=== PATIENT | male | born 1935 | race Caucasian/White ===

== ENCOUNTER 2016-12-29 09:13 | Inpatient (IN) | payer MEDICARE ==
[~2016-12-29] VITALS: Ht 180.3 cm; Wt 71.7 kg
[~2016-12-29 09:13] MED LIST: ACIPHEX20 MG PO; ASPIRIN LOW DOS81 M2 PO; BENAZEPRIL10 MG PO; FISH OIL1000 MG PO; FORADIL PO; METOPROL TAR25 MG PO; PREDNISONE20 MG PO; PROVENTIL0.083 % IN; SIMVASTATIN10 MG PO
[2016-12-29] MEDS ORDERED: ZOCOR20 M1 PO (09:22)
[2016-12-29] MEDS ORDERED: BENAZEPRIL10 MG PO (09:22)
[2016-12-29] MEDS ORDERED: METO25TAB PO (09:23)
[2016-12-29] MEDS ORDERED: LEVALBUTER1.25 MG/3 IN (09:26)
[2016-12-29] MEDS ORDERED: VENTOLIN HFA IN (09:28)
[2016-12-29] MEDS ORDERED: VITAMIN B-12500 MCG PO (09:29)
[2016-12-29] MEDS ORDERED: FISH OIL1000 MG PO (09:30)
[2016-12-29] MEDS ORDERED: ROBITUSS22 PO (09:31)
[2016-12-29] MEDS ORDERED: GUAIFENESI PO (09:32)
[2016-12-29] MEDS ORDERED: BL IBUPROFEN200 MG PO (09:33)
[2016-12-29] MEDS ORDERED: SEREVENT D50 MCG/DOS IN (09:34)
[2016-12-29 09:57] LABS: HEMATOCRIT 24.5 % (39.0-50.0); HEMOGLOBIN 7.2 g/dl (14.0-18.0); MEAN CELL VOLUME 108.9 fL CALC (80.0-100.0); MEAN CORPUSCULAR HGB CONC 29.4 g/L CALC (32.0-36.0); NEUT# 3.54 thou/uL (1.82-7.42); RED BLOOD COUNT 2.25 mill/uL (4.70-6.10); RED CELL DISTRI WIDTH 16.7 % (11.5-15.5)
[2016-12-29 09:59] LABS: IMMATURE GRANULOCYTES 11.7 % (0.0-1.0)
[2016-12-29 10:12] LABS: ALBUMIN 3.9 g/dL (3.2-5.0); ALKALINE PHOSPHATASE 88 u/l (38-126); ANION GAP 15 (6-22 (CALC)); BILIRUBIN, TOTAL 0.6 mg/dL (0.0-1.4); BUN 30 mg/dL (8-23); BUN/CREATININE RATIO 24 (12-20 (CALC)); CARBON DIOXIDE 26 mmol/l (22-30); CHLORIDE 105 mmol/l (95-108); CREATININE 1.3 mg/dL (0.7-1.3); GFR 53 ML/MIN (>=60 (CALC)); GFR FOR AFR.AMER. > 60 ML/MIN (>=60 (CALC)); GLUCOSE 124 mg/dL (82-115); POTASSIUM 4.4 mmol/l (3.5-5.1); SGOT/AST 30 u/l (19-48); SGPT/ALT 19 u/l (11-66); SODIUM 141 mmol/l (137-146); TOTAL PROTEIN 8.5 g/dL (6.3-8.2)
[2016-12-29 10:28] LABS: MYOGLOBIN 779 ng/mL (0 - 121)
[2016-12-29 10:35] VITALS: BP 116/69
[2016-12-29 12:00] VITALS: BP 130/58
[2016-12-29 12:45] VITALS: BP 129/60
[2016-12-29 13:04] VITALS: BP 118/56
[2016-12-29 14:26] VITALS: BP 128/65
[2016-12-29 19:35] VITALS: BP 141/63
[2016-12-30] VITALS (10 sets, daily range): BP systolic 100–146; BP diastolic 52–69
[2016-12-30 05:55] LABS: HEMATOCRIT 26.4 % (39.0-50.0); HEMOGLOBIN 8.1 g/dl (14.0-18.0); MEAN CELL VOLUME 103.9 fL CALC (80.0-100.0); MEAN CORPUSCULAR HGB 31.9 pG CALC (26.0-32.0); MEAN CORPUSCULAR HGB CONC 30.7 g/L CALC (32.0-36.0); PLATELET COUNT 142 thou/uL (130-400); RED BLOOD COUNT 2.54 mill/uL (4.70-6.10); RED CELL DISTRI WIDTH 18.4 % (11.5-15.5)
[2016-12-30 06:07] LABS: ANION GAP 14 (6-22 (CALC)); BUN 21 mg/dL (8-23); BUN/CREATININE RATIO 21 (12-20 (CALC)); CALCULATED LDLCHOLESTEROL 35 mg/dL (62-129 (CALC)); CARBON DIOXIDE 24 mmol/l (22-30); CHLORIDE 106 mmol/l (95-108); CHOLESTEROL HDL RATIO 3.2 (<4.4 (CALC)); GFR > 60 ML/MIN (>=60 (CALC)); GFR FOR AFR.AMER. > 60 ML/MIN (>=60 (CALC)); GLUCOSE 95 mg/dL (82-115); HDL CHOLESTEROL 25 mg/dL (>=40); POTASSIUM 4.4 mmol/l (3.5-5.1); SODIUM 140 mmol/l (137-146); TOTAL CHOLESTEROL 82 mg/dl (0-199); TOTAL TRIGLYCERIDES 106 mg/dl (30-149); VLDL CHOLESTROL 21 mg/dl (0-38 (CALC))
[2016-12-30 07:05] LABS: IMMATURE GRANULOCYTES 23.4 % (0.0-1.0)
[2016-12-30 07:06] LABS: BAND 7 % (0-8); MANUAL DIFFERENTIAL YES; PLATELET ESTIMATE NORMAL
[2016-12-31 04:40] VITALS: BP 122/65
[2016-12-31 06:27] LABS: HEMATOCRIT 26.5 % (39.0-50.0); HEMOGLOBIN 8.3 g/dl (14.0-18.0); MEAN CELL VOLUME 101.9 fL CALC (80.0-100.0); MEAN CORPUSCULAR HGB 31.9 pG CALC (26.0-32.0); MEAN CORPUSCULAR HGB CONC 31.3 g/L CALC (32.0-36.0); NEUT# 1.43 thou/uL (1.82-7.42); RED BLOOD COUNT 2.6 mill/uL (4.70-6.10); RED CELL DISTRI WIDTH 18.5 % (11.5-15.5)
[2016-12-31 06:31] LABS: IMMATURE GRANULOCYTES 20.9 % (0.0-1.0)
[2016-12-31 07:31] VITALS: BP 141/69
[2016-12-31 11:55] VITALS: BP 108/59
[2016-12-31 15:11] VITALS: BP 128/42
[2016-12-31 19:28] VITALS: BP 117/63
[2016-12-31 23:34] VITALS: BP 112/60
[2017-01-01 03:45] VITALS: BP 139/67
[2017-01-01 06:15] LABS: HEMATOCRIT 28.2 % (39.0-50.0); HEMOGLOBIN 8.8 g/dl (14.0-18.0); MEAN CELL VOLUME 101.8 fL CALC (80.0-100.0); MEAN CORPUSCULAR HGB 31.8 pG CALC (26.0-32.0); MEAN CORPUSCULAR HGB CONC 31.2 g/L CALC (32.0-36.0); RED BLOOD COUNT 2.77 mill/uL (4.70-6.10); RED CELL DISTRI WIDTH 17.5 % (11.5-15.5)
[2017-01-01 07:31] VITALS: BP 128/56
[2017-01-01 11:00] VITALS: BP 108/61
[2017-01-01 16:04] VITALS: BP 123/69
[2017-01-01 20:33] VITALS: BP 134/68
[2017-01-02] VITALS: BP 115/59
[2017-01-02 00:33] LABS: URINE BILIRUBIN - DIPSTICK NEGATIVE (NEGATIVE); URINE BLOOD DIPSTICK TRACE-INTACT (NEGATIVE); URINE CLARITY CLOUDY; URINE COLOR YELLOW; URINE GLUCOSE - DIPSTICK NEGATIVE (NEGATIVE); URINE KETONE NEGATIVE (NEGATIVE); URINE LEUK ESTERASE NEGATIVE (NEGATIVE); URINE NITRITE - DIPSTICK NEGATIVE (Negative); URINE PROTEIN - DIPSTICK NEGATIVE (NEG-TRACE); URINE SPECIFIC GRAVITY <=1.005; URINE UROBILINOGEN - DIPSTICK 0.2 E.U./dL (0.2)
[2017-01-02 05:00] VITALS: BP 132/68
[2017-01-02 07:17] VITALS: BP 120/57
[2017-01-02 11:43] VITALS: BP 110/63
[2017-01-02 15:24] VITALS: BP 114/62
== END 2017-01-02 17:44 | DRG 812 ==
LOC: ED 09:13 → ED-I 10:45 → ED 10:45 → ED-I 10:46 → ED 12:08 → MS2 12:09
PROVIDERS: Emergency Medicine; Nurse Practitioner Family; ADMIT Internal Medicine; ATTEND Internal Medicine
PROC: 30233N1 Transfusion of Nonautologous Red Blood Cells into Peripheral Vein, Percutaneous Approach (ICD-10-PCS; principal; 2016-12-29)
PROC: 30233N1 Transfusion of Nonautologous Red Blood Cells into Peripheral Vein, Percutaneous Approach (ICD-10-PCS; 2016-12-30)
DX: D46.9 Myelodysplastic syndrome, unspecified (principal); N17.9 Acute kidney failure, unspecified; D61.818 Other pancytopenia; F03.90 Unspecified dementia, unspecified severity, without behavioral disturbance, psychotic disturbance, mood disturbance, and anxiety; F05 Delirium due to known physiological condition; J44.1 Chronic obstructive pulmonary disease with (acute) exacerbation; I73.9 Peripheral vascular disease, unspecified; M35.3 Polymyalgia rheumatica; E78.5 Hyperlipidemia, unspecified; E86.1 Hypovolemia; N31.2 Flaccid neuropathic bladder, not elsewhere classified; N39.45 Continuous leakage; I12.9 Hypertensive chronic kidney disease with stage 1 through stage 4 chronic kidney disease, or unspecified chronic kidney disease; N18.9 Chronic kidney disease, unspecified; Z99.81 Dependence on supplemental oxygen; Z91.81 History of falling; Z87.891 Personal history of nicotine dependence; Z88.8 Allergy status to other drugs, medicaments and biological substances
CPT/HCPCS: J0885; P9016

== ENCOUNTER 2017-02-18 20:42 | Inpatient (IN) | payer MEDICARE ==
[~2017-02-18] VITALS: Ht 182.9 cm; Wt 70.0 kg
[~2017-02-18 20:42] MED LIST changes: +BL IBUPROFEN200 MG PO; +GUAIFENESI PO; +LEVALBUTER1.25 MG/3 IN; +METO25TAB PO; +ROBITUSS22 PO; +SEREVENT D50 MCG/DOS IN; +VENTOLIN HFA IN; +VITAMIN B-12500 MCG PO; +ZOCOR20 M1 PO
--- NOTE | 2017-02-18 20:42 | NUR ---
PT TOROOM VIA EMS
[2017-02-18 21:19] LABS: HEMATOCRIT 26.4 % (39.0-50.0); HEMOGLOBIN 8.4 g/dl (14.0-18.0); MEAN CELL VOLUME 103.5 fL CALC (80.0-100.0); MEAN CORPUSCULAR HGB 32.9 pG CALC (26.0-32.0); MEAN CORPUSCULAR HGB CONC 31.8 g/L CALC (32.0-36.0); NEUT# 7.83 thou/uL (1.82-7.42); RED BLOOD COUNT 2.55 mill/uL (4.70-6.10); RED CELL DISTRI WIDTH 18.9 % (11.5-15.5)
[2017-02-18 21:20] LABS: IMMATURE GRANULOCYTES 6.4 % (0.0-1.0)
[2017-02-18 21:34] LABS: ALBUMIN 3.8 g/dL (3.2-5.0); CREATININE 1.6 mg/dL (0.7-1.3); TOTAL PROTEIN 8.7 g/dL (6.3-8.2)
[2017-02-18] MEDS ORDERED: MULTI VIT PO (21:44)
[2017-02-18] MEDS ORDERED: ALLEGRA180 MG PO (21:45)
[2017-02-18] MEDS ORDERED: PROCRIT4000 UNIT/ SC (21:47)
--- NOTE | 2017-02-18 22:00 | NUR ---
ASSUMED CARE...PT ON BIPAP. AT BEDSIDE. PT IS SLIGTLY RESTLESS. IVF INFUSING. SAT 100%
--- NOTE | 2017-02-18 22:58 | NUR ---
DR TO BEDSIDE AND BIPAP REMOVED.
--- NOTE | 2017-02-18 23:34 | NUR ---
REPORT TO GUDELIA IN ICU. ADVISED OF BIPAP AND REMOVAL. BP. WHEEZES/RALES/RHONCHI. PT FEELS BETTER THAN HE DID ON ARRIVAL.
[2017-02-19] VITALS (78 sets, daily range): BP systolic 57–119; BP diastolic 34–73
--- NOTE | 2017-02-19 00:02 | NUR ---
DR MIRANDA AT BEDSIDE WITH PT. OK TO GO UP TO ICU. 84/48-63 MAP/86 HR/22 RR/SAT 97 ON 4 LPM NC.
--- NOTE | 2017-02-19 00:08 | NUR ---
TO FLOOR WITH O2/MONITOR AND NURSE. FAMILY WITH TO ICU.
--- NOTE | 2017-02-19 00:09 | NUR ---
male pt received to ICU bed 1 via stretcher accompanied by HUDSON Diana in stable condition; pt deny ability to ambulate; transferred to bed x4 staff; weight obtained via bed scale; admission assessment completed at this time; pt alert to person and place; spouse and son at bedside for admission questions; c/c of increased sob/ "couldn't catch my breath"; denies pain/chest pain; resp labored/ tachypneic; lungs coarse with rhonchi/ crackles noted to right base; skin color wnl; o2 per nc at 4L; moist/loose non productive cough noted; hr reg; wk pedal pulses; 3+ edema noted to lle, 2+ edema noted to rle; st on monitor; pt refused kellen hose; abd soft with bs present; incont of scant brown bm noted; incont of urine; pericare per staff; dressing to to coccyx/ buttocks; dressing removed/ multiple pressure ulcers noted; yellowish/ brown drainage noted to dressing; pic doc obtained; redness noted to left heel, left hip; bruising, ecchymosis noted to ble; scabs x2 noted to lle; #18 ems site to lfa flushed and patent; ivf initiated as per orders; plan of care/ meds explained to pt; pt refusing repositioned/ demanding to remain supine; repositioning explained and pt cont to refuse; oriented to bed and call light; will continue to monitor closely
[2017-02-19 00:17] LABS: CALCIUM 8.6 mg/dL (8.4-10.2); CREATININE 1.6 mg/dL (0.7-1.3); POTASSIUM 5.6 mmol/l (3.5-5.1)
--- NOTE | 2017-02-19 02:00 | NUR ---
awake; o2 per nc; resp remains labored; hypotensive; st on monitor; will continue to monitor
--- NOTE | 2017-02-19 02:04 | NUR ---
received call from [facility]; states Procrit is only available in pharmnacy; med scheduled for this am
--- NOTE | 2017-02-19 02:09 | NUR ---
Dr Ospina called per curriculum writer; informed pt is hypotensive; current bp 65/43, hr 98; manual bp 70/42; orders received and on chart
--- NOTE | 2017-02-19 02:40 | NUR ---
pt updated in plan of care; 16 Fr york catheter inserted using psychiatric technician x1 attempt; scant yellow urine noted to catheter tubing; lg urinary incont noted prior to york insertion; pericare per staff; #20 started in rfa x1 attempt; flushed and locked; good patency noted to #18 lfa; levophed initiated at 1mcg/min; sr 90s on monitor; o2 per nc; call light within reach; will continue to monitor
--- NOTE | 2017-02-19 03:00 | NUR ---
pt awake; bottle label inspector at bedside; pt offers no complaints; denies pain; resp labored; o2 per nc; york to gravity; will continue to monitor
[2017-02-19 03:40] LABS: HEMATOCRIT 22.1 % (39.0-50.0); MEAN CELL VOLUME 105.2 fL CALC (80.0-100.0); MEAN CORPUSCULAR HGB 32.9 pG CALC (26.0-32.0); MEAN CORPUSCULAR HGB CONC 31.2 g/L CALC (32.0-36.0); NEUT# 12.2 thou/uL (1.82-7.42); RED BLOOD COUNT 2.1 mill/uL (4.70-6.10)
[2017-02-19 03:47] LABS: URINE BLOOD DIPSTICK TRACE-INTACT (NEGATIVE); URINE CLARITY SLIGHT CLOUDY; URINE COLOR YELLOW; URINE GLUCOSE - DIPSTICK NEGATIVE (NEGATIVE); URINE KETONE TRACE mg/dL (NEGATIVE); URINE LEUK ESTERASE NEGATIVE (NEGATIVE); URINE NITRITE - DIPSTICK NEGATIVE (Negative); URINE PROTEIN - DIPSTICK NEGATIVE (NEG-TRACE); URINE SPECIFIC GRAVITY >=1.030
[2017-02-19 03:48] LABS: HEMOGLOBIN 6.9 g/dl (14.0-18.0)
[2017-02-19 03:51] LABS: URINE BILIRUBIN - DIPSTICK SMALL (NEGATIVE)
[2017-02-19 03:57] LABS: ALBUMIN 2.7 g/dL (3.2-5.0); CREATININE 1.7 mg/dL (0.7-1.3)
[2017-02-19 04:04] LABS: POTASSIUM 5.4 mmol/l (3.5-5.1)
--- NOTE | 2017-02-19 04:06 | NUR ---
Dr Ospina called per auto service writer; informed H&H 6.9 and 22.1; updated on scant u/o of approx 15cc; informed pt cont with hypotension, BP 83/36; informed Procrit not available/located in pharmacy; orders received and on chart
--- NOTE | 2017-02-19 05:05 | NUR ---
pt awake; offers no complaints; continues to refuse to reposition; updated on plan of care/ blood transfusion; consent obtained;
--- NOTE | 2017-02-19 06:31 | NUR ---
1st unit of prbc's verified at bedside per protocol; pt explained possible s/s of allergic reaction and to notify staff immed. voices understanding; prbcs initiated; development writer remains at bedside;
--- NOTE | 2017-02-19 07:20 | NUR ---
PT ALERT AND ORIENTED RESTING INBED, OFFERS NO COMPLAINT, AM ASSESSMENT COMPLETED, SEE INTERVENTIONS, SKIN FRAGILE WIHT BREAKDOWN NOTED TO COCCYX AND BUTTOCKS, PT CONTINUES TO REFUSE REPOSITION, EDUCATED REGARDING THE IMPORTNACE OF PRESSURE OFFLOADING WITH REGARDS TO HEALING PT VERBALIZES UNDERSTANDING BUT DECLINES REPOSITION AT THIS TIME, URINE OUTPUT STILL MINIMAL, 1st UNIT PRBC'S INFUSING WITHOUT INCIDENT, PT HAS MOIST STRATEGY ASSOCIATE COUGH, O2 AT 4L VIA NC, WITH EXERTIONAL SOB NOTED, LEVOPHED CONTINUES PER PROTOCOL, CALL PARKS WITHIN REACH, SAFETY MEASURES REINFORCED, WILL CONTINUE TO MONITOR
--- NOTE | 2017-02-19 08:55 | NUR ---
1ST UNIT PARBC COMPLETED, PT TOLERATED WITHOUT INCIDENT, REMAINS AT BEDSIDE, APPETITE FAIR, BS ACTIVE, NO BM NOTED, URINE OUTPUT MINIMAL , WILL NOTIFY MD ON AM ROUNDS
--- NOTE | 2017-02-19 09:00 | NUR ---
2ND UNIT PRBC'S STARTED W/O INCIDENT, CHRISTOPHER CATHETER REMAINS INTACT, WILL CONTINUE TO MONITOR.
--- NOTE | 2017-02-19 09:37 | NUR ---
AWARE OF POOR URINE OUTPUT, LEVOPHED CONTINUES W/O INCIDENT, CALL PARKS WITHIN REACH.
--- NOTE | 2017-02-19 10:35 | NUR ---
PT REPOSITIONED ON SIDE FOR PRESSURE RELIEF, PT HAS ALLEYN FOAM IN PLACE TO COCCYX, CHRISTOPHER CATHETER WITH SMALL AMOUNT URINE OUT PUT NOTED, WILL PAIGE CLSOELY, BOTH PT AND SPOUSE EDUCATED BY ABOUT NEED/REASONS FOR PICC LINE INCLUDING RISKS AND BENEFITS, BOTH VERBALIZE UNDERSTANDING, AND RADIOLOGY AWARE WITH PLANNED TIME OF 1230.
--- NOTE | 2017-02-19 11:35 | NUR ---
SET UP ASSIST PROVIDED FRO AFTERNOON MEAL, CALL PARKS WITHIN REACH
--- NOTE | 2017-02-19 12:00 | NUR ---
PT SPOUSE LEAVING AT THIS TIME, CALL PARKS WITHIN REACH
--- NOTE | 2017-02-19 12:34 | NUR ---
PT ONTO STRETCHER WITH 3 MAX ASSIST SLIDE, TO RADILOGY VIA STRETCHER FOR PICC PLACEMENT.
--- NOTE | 2017-02-19 14:04 | NUR ---
PT RESTING IN BED, LEVOPHED REMAINS ON HOLD WITH MAP MAINTAINED 65 OR >, CALL PARKS WITHIN REACH, SAFETY MEASURES REINFORCED.
--- NOTE | 2017-02-19 15:07 | NUR ---
CONTINUES O2 SATS 98-99% ON 4L DECREASED O2 TO 3L VIA NC, WILL MONITOR TOLERANCE
--- NOTE | 2017-02-19 15:09 | NUR ---
S: CASPER RAINEY is a 81 M who presents with pneumonia. O: VS: BP 96/52, P 78, RR 26, T 96.6 W 66 kg, HT 72 in, Scr=1.7, CrCl= 30.7 ml/min A: Blood culture is pending. Sputum culture is pending. P: Patient is on Levaquin 750 mg IV Q48H. Vancomycin ordered for pharmacy to dose. Start Vancomycin 1 g IV Q24H. Vancomycin trough is drawn before the 4th dose on 02/22@1030. Vancomycin goal trough is between 15-20 mcg/ml. Pharmacy will follow and or advise on antibiotics use as needed.
--- NOTE | 2017-02-19 15:58 | NUR ---
BACK AT BEDSIDE, OFFERS NO NEW COMPLAINTS, CALL PARKS WITHIN REACH.
--- NOTE | 2017-02-19 17:30 | NUR ---
PT RESTING IN BED, NO CHANGES FROM PREVIOUS, CALL PARKS WITHIN REACH, WILL CONTINUE TO MONITOR.
--- NOTE | 2017-02-19 18:45 | NUR ---
REPORT FROM Mathew ROWE RN. ASSUMED PT. CARE.
--- NOTE | 2017-02-19 19:45 | NUR ---
PT. FOUND AWAKE, ALERT, ORIENTED X 3. SKIN WARM AND DRY. PT. C/O MILD LEG PAIN THAT IS NORMAL FOR HIM, STATES HE HAS PROBLEMS WITH "BLOOD FLOW" TO HIS LEGS. RESPS EVEN AND UNLABORED. PT. BECOMES LABORED WITH EXERTION. PT. EXPLAINED THE IMPORTANCE OF FREQUENT TURNING BECAUSE OF HIS BUTTOCK WOUNDS. PT. AGREEABLE. PT. REPOSITIONED FOR COMFORT AT THIS TIME. LUNGS CLEAR TO UPPERS BILAT, DIMINISHED TO BASES. HR STABLE AT 80'S SINUS. SCANT LOWER EXT EDEMA 1+, LT. GREATER THAN RIGHT. CALL LIGHT PLACED WITHIN REACH. WILL CONTINUE TO MONITOR.
--- NOTE | 2017-02-19 21:30 | NUR ---
PT. RESTING IN BED. MEDICATED PER PHYSICIAN ORDERS. PT. REPOSITIONED FOR COMFORY AT THIS TIME VSS. CALL LIGHT REMAINS WITHIN REACH.
--- NOTE | 2017-02-19 23:15 | NUR ---
PT. RESTING ON RT. SIDE AT THIS TIME. DENIES COMPLAINTS OF PAIN OR NEED. SKIN WARM AND DRY. REMAINS AFEBRILE. RESPS REMAINS EVEN AND UNLABORED AT REST. WITH ANY EXERTION, SPO2 DECREASED AND WORK OF BREATHING INCREASES. IV FLUIDS CONTINUE TO INFUSE AT 50 CC/HR. CALL LIGHT REMAINS WITHIN REACH. WILL CONTINUE TO ASSESS.
[2017-02-20] VITALS (17 sets, daily range): BP systolic 73–136; BP diastolic 50–69
--- NOTE | 2017-02-20 01:39 | NUR ---
PT. RESTING ON RT. SIDE WITH EYES CLOSED. HEELS OFFLOADED. PT. REMAINS STABLE AT THIS TIME. SINUS IN THE 80'S. NORMOTENSIVE. RESPS REMAIN EVEN AND UNLABORED. PT. CONTINUES WITH COUGH AND SCANT SPUTUM PRODUCTION. DENIES COMPLAINTS. CALL LIGHT REMAINS WITHIN REACH.
--- NOTE | 2017-02-20 03:30 | NUR ---
PT. RESTING IN BED WITH EYES CLOSED. DENIES COMPLAINTS OR NEEDS AT THIS TIME. RESPS EVEN AND UNLABORED. SKIN WARM AND DRY. IV FLUIDS CONTINUE TO INFUSE AT 50 CC/HR. VSS. CALL LIGHT REMAINS WITHIN REACH.
--- NOTE | 2017-02-20 04:35 | NUR ---
LAB AT BEDSIDE AT THIS TIME. PT. AROUSABLE TO LIGHT VERBAL STIMULI. REMAINS STABLE. RESPS EVEN AND UNLABORED. CALL LIGHT WITHIN REACH.
[2017-02-20 04:44] LABS: HEMOGLOBIN 8.7 g/dl (14.0-18.0); MEAN CELL VOLUME 96.8 fL CALC (80.0-100.0); MEAN CORPUSCULAR HGB 31.2 pG CALC (26.0-32.0); MEAN CORPUSCULAR HGB CONC 32.2 g/L CALC (32.0-36.0); RED BLOOD COUNT 2.79 mill/uL (4.70-6.10); RED CELL DISTRI WIDTH 23.7 % (11.5-15.5)
[2017-02-20 04:59] LABS: ANION GAP 16 (6-22 (CALC)); BUN 33 mg/dL (8-23); BUN/CREATININE RATIO 27 (12-20 (CALC)); CALCIUM 7.5 mg/dL (8.4-10.2); CARBON DIOXIDE 21 mmol/l (22-30); CHLORIDE 110 mmol/l (95-108); CREATININE 1.2 mg/dL (0.7-1.3); GFR 58 ML/MIN (>=60 (CALC)); GFR FOR AFR.AMER. > 60 ML/MIN (>=60 (CALC)); GLUCOSE 72 mg/dL (82-115); MAGNESIUM 1.8 mg/dL (1.6-2.3); POTASSIUM 4.4 mmol/l (3.5-5.1); SODIUM 142 mmol/l (137-146)
--- NOTE | 2017-02-20 06:05 | NUR ---
PT. CLEANSED OF SCANT STOOL. REPOSITIONED TO RT. SIDE AT THIS TIME. PERINEAL CARE PROVIDED. ALLEVYN DRESSING CHANGED AT THIS TIME. HEELS OFFLOADED FOR PT. COMFORT. CALL LIGHT REMAINS WITHIN REACH.
--- NOTE | 2017-02-20 06:55 | NUR ---
OOB TO BSC WITH 2 MOD/MAX ASSIST, CALL PARKS WITHIN REACH.
--- NOTE | 2017-02-20 07:35 | NUR ---
PT ALERT AND ORIENTED RESTING BACK IN BED, TELE READING ST VS. AFIB RATE 140-160'S AFTER EXERTION, WILL MONITOR CLOSELY, OFFERS NO COMPLAINT, AM ASSESSMENT COMPLETED, SEE INTERVENTIONS, SKIN FRAGILE WITH BREAKDOWN NOTED TO COCCYX AND BUTTOCKS, PT COOPERATIVE WITH REPOSITION, EDUCATED REGARDING THE IMPORTNACE OF PRESSURE OFF LOADING WITH REGARDS TO HEALING PT VERBALIZES UNDERSTANDING URINE OUTPUT IMPROVED, PT HAS MOIST BOAT DISPATCHER COUGH, O2 AT 4L VIA NC, WITH EXERTIONAL SOB NOTED, CALL PARKS WITHIN REACH, SAFETY MEASURES REINFORCED, WILL CONTINUE TO MONITOR
--- NOTE | 2017-02-20 08:10 | NUR ---
AWARE OF CONTINUE TACHYCARDIA, RATE REMAINS 140-160 UNABLE TO DETERMINE RHYTHM R/T RATE, PT DENIES PAIN OR DISCOMFORT, EN ROUTE. CALL PARKS WITHIN REACH
--- NOTE | 2017-02-20 08:35 | NUR ---
MEDICATED WITH DIGOXIN IV ORDERED, AND TAKES PO MEDICATIONS W/O INCIDENT, WILL CONTINUE TO MONITOR CLOSELY.
--- NOTE | 2017-02-20 09:30 | NUR ---
PT CONTINUES TO BE TACHYCARDIC, AND AWARE, RECORDS REQUESTED FROM PER . AT BEDSIDE, WILL COTNINUE TO MONITOR.
--- NOTE | 2017-02-20 10:25 | NUR ---
OOB TO BSC WITH ONE MOD ASSIST, 500ML BOLUS CONINUES ORDERED, HR REMAINS 120-140'S, BP STABLE, WILL CONTINUE TO MONITOR.
--- NOTE | 2017-02-20 11:15 | NUR ---
AWARE OF CONTINUED TACHYCARDIA, INCREASED IVF TO 125 PER VERBAL ORDER, TO RETURN SEE PT.
--- NOTE | 2017-02-20 11:58 | NUR ---
OOB EARLIER TO BSC AND BACK TO BED WITH SAME MAS ASSIST, ALSO ASSISTED WITH SACHIN CARE RELATED TO WEAKNESS, IVF RATE INCREASED EARLIER PER VERBAL ORDER, AT BEDSIDE INTERMITTENLY, WILL CONTINUE TO MONITOR
--- NOTE | 2017-02-20 13:30 | NUR ---
PT BATHED AND LINENS CHANGED, BP REMAINS STBALE HR REMAINS ELEVATED AT 120-140, O2 SATS MAINTAINED ON 4L NC, LABORED RESPS WITH MINIMAL EXERTION, THICK TENACIOUS GREENISH YELLOW SPUTUM NOTED INTERMITTENLY, AQUACEL FOAM INCLUSIVE DRESSING APPLIED WOUNDS ON COCCYX/BUTTOCKS, CONTINUE TO REPOSITION Q2H AND ELEVATE HEELS, CALL PARKS WITHIN REACH
--- NOTE | 2017-02-20 15:08 | NUR ---
AMIODARONE BOLUS COMPLETE AND DRIP STARTED PER PROTOCOL, PT TOELRATING W/O INCIDENT, IVF CONTINUE AT PRESCRIBED RATE, WILL CONTINUE TO MONITOR.
--- NOTE | 2017-02-20 16:14 | NUR ---
PT RESTING IN BED, OFFERS NO NEW COMPLAINT, AT BEDSIDE AT THIS TIME, TOLERATING AMIODARON GTT W/O INCIDENT, TELE CONTINEUS READING A FIB RATE IN THE 'S, WILL CONTINUE TO MONITOR.
--- NOTE | 2017-02-20 16:55 | NUR ---
PT RESTING INBED, OFFERS NO NEW COMPLAINTS, CALL PARKS WITHIN REACH
--- NOTE | 2017-02-20 17:20 | NUR ---
SET UP ASSIST PROVIDED FOR PM MEAL, AT BEDSIDE AND WILL ASSIST.
--- NOTE | 2017-02-20 18:29 | NUR ---
REPORT FROM HUDSON MENDOZA. ASSUMED PT. CARE.
--- NOTE | 2017-02-20 20:05 | NUR ---
PT. REPOSITIONED TO RT. SIDE AT THIS TIME FOR COMFORT. PT. DENIES COMPLAINTS OF PAIN OR NEED. AWAKE, ALERT, ORIENTED TO PERSON AND PLACE AT THIS TIME. AMIODARONE DRIP INFUSING AT 33.3 CC/HR. SKIN WARM AND DRY. RESPS EVEN AND UNLABORED. INCREASED WORK OF BREATHING AND HR WITH EXERTION. SCANT LOWER EXT EDEMA NOTED. REMAINS A-FIB WITH RATED IN THE 80-120. CALL LIGHT REMAINS WITHIN REACH.
--- NOTE | 2017-02-20 22:02 | NUR ---
PT. REPOSITIONED TO SUPINE AT THIS TIME. MEDICATED PER PHYSICIAN ORDERS. WILL CONTINUE TO MONITOR. CALL LIGHT REMAINS WITHIN REACH. DENIES OTHER COMPLAINTS.
[2017-02-21] VITALS (15 sets, daily range): BP systolic 124–159; BP diastolic 52–76
--- NOTE | 2017-02-21 | NUR ---
PT. RESTING IN BED WITH EYES CLOSED. AROUSABLE TO LIGHT VERBAL STIMULI. REMAINS WITH MOIST COUGH WITH SPUTUM PRODUCTION. RESPS REMAINS EVEN AND UNLABORED, UNLESS EXERTING. SPO2 IS 99% ON 4L HUMIDIFIED O2 VIA NC. REMAINS AFEBRILE AT THIS TIME. CALL LIGHT REMAINS WITHIN REACH.
--- NOTE | 2017-02-21 01:15 | NUR ---
PT. RESTING WITH EYES CLOSED AND SNORING RESPS. VSS. NO DISTRESS NOTED. IV FLUIDS CONTINUE TO INFUSE. CALL LIGHT WITHIN REACH. WILL CONTINUE TO ASSESS.
--- NOTE | 2017-02-21 01:55 | NUR ---
PT. CONTINUES TO REST IN BED WITH EYES CLOSED. PT. TURNED TO SUPINE. RESPS REMAIN EVEN AND UNLABORED. SKIN REMAINS WARM AND DRY. VSS. AMIODARONE DRIP CONTINUES TO INFUSE AT 16.7 CC/HR AT THIS TIME. CALL LIGHT REMAINS WITHIN REACH.
--- NOTE | 2017-02-21 03:45 | NUR ---
PT. REMAINS STABLE AT THIS TIME AND VOICES NO COMPLAINTS OR CONCERNS. REMAINS WITH MOIST COUGH. VSS. BP AND HR STABLE AT THIS TIME. SINUS IN THE 60-70'S. WILL CONTINUE TO MONITOR.
--- NOTE | 2017-02-21 04:20 | NUR ---
BLOOD SAMPLES OBTAINED AT THIS TIME VIA PICC LINE. FLUSHED AND IV FLUIDS REINITIATED AT THIS TIME. AMIODARONE DRIP CONTINUES TO INFUSE. RESPS REMAIN EVEN AND UNLABORED ON 4L NC. PT. REMAINS IN SINUS RHYTHM. NO DISTRESS NOTED.
[2017-02-21 04:32] LABS: HEMATOCRIT 26.4 % (39.0-50.0); HEMOGLOBIN 8.2 g/dl (14.0-18.0); MEAN CELL VOLUME 100.4 fL CALC (80.0-100.0); MEAN CORPUSCULAR HGB 31.2 pG CALC (26.0-32.0); MEAN CORPUSCULAR HGB CONC 31.1 g/L CALC (32.0-36.0); RED BLOOD COUNT 2.63 mill/uL (4.70-6.10); RED CELL DISTRI WIDTH 22.5 % (11.5-15.5)
[2017-02-21 04:48] LABS: ANION GAP 13 (6-22 (CALC)); BUN 23 mg/dL (8-23); BUN/CREATININE RATIO 25 (12-20 (CALC)); CARBON DIOXIDE 20 mmol/l (22-30); CHLORIDE 111 mmol/l (95-108); CREATININE 0.9 mg/dL (0.7-1.3); GFR > 60 ML/MIN (>=60 (CALC)); GFR FOR AFR.AMER. > 60 ML/MIN (>=60 (CALC)); GLUCOSE 149 mg/dL (82-115); MAGNESIUM 1.7 mg/dL (1.6-2.3); POTASSIUM 3.7 mmol/l (3.5-5.1); SODIUM 141 mmol/l (137-146)
--- NOTE | 2017-02-21 06:32 | NUR ---
IV ABX INFUSING WITHOUT SX OF INFILTRATION OR EXTRAVASATION. RESPS REMAIN EVEN AND UNLABORED. REMAINS AFEBRILE. PROVIDED WITH WATER PER PT. REQUEST. REPOSITIONED TO LT. SIDE. CALL LIGHT REMAINS WITHIN REACH.
--- NOTE | 2017-02-21 06:45 | NUR ---
REPORT RECEIVED FROM HUDSON PEOPLES. PT RESTING COMFORTABLY ON THE RIGHT SIDE. VS OBTAINED, PT ASSESSMENT PERFORMED. RE-POSITIONED TO SUPINE. SET-UP FOR BREAKFAST. PT DENIES PAIN, SOB OR DISCOMFORT. CALL LIGHT WITHIN REACH, SAFETY REVIEWED. INSTRUCTED PT TO USE CALL LIGHT FOR ASSISTANCE, PT VERBALIZES UNDERSTANDING.
--- NOTE | 2017-02-21 09:00 | NUR ---
[facility]SF[facility] TO [facility] AND CONNECTED TO Copyright Agent, FOR PORTABLE CARDIAC MONITORING. PT STABLE AT TIME OF DEPARTURE. WILL CONTINUE TO MONITOR WHILE OFF UNIT.
--- NOTE | 2017-02-21 09:40 | NUR ---
PT TOLERATED PROCEDURE, NO SIGNIFICANT CHANGE ON PORTABLE MONITOR. PT LINENS AND GOWN CHANGED AT THIS TIME. SLID BACK TO BED, PT REFUSES TO SIT IN BS CHAIR OR ATTEMPT TO TRANSITION FROM STRETCHER TO BED. PT ENCOURAGED TO PERFORM ADL'S, AT BS, STATES "I WILL CLEAN HIM UP." CALL LIGHT WITHIN REACH. VSS. SAFETY REVIEWED, WILL CONTINUE TO MONITOR.
--- NOTE | 2017-02-21 14:00 | NUR ---
PT GIVEN EDUCATION IN REGARDS TO CLASSIFICATION OF MERREM ABX THERAPY. PT HAS HISTORY OF PCN ALLERGY. PT STATES "I DONT REMEMBER WHAT HAPPENED WHEN I TOOK IT, YOULL HAVE TO ASK MY WHEN SHE COMES." PT ALSO ASKED ABOUT PREDNISONE, AND HE STATES "I GET GOOFY ON THE MEDICATION." PT EDUCATED/INFORMED OF POSSIBLE ALLERGIC REACTION AND MEDICATIONS USED TO PREVENT OR REDUCE REACTION. WILL ASK WHEN SHE IS AT BS. PT INSTRUCTED TO USE CALL LIGHT FOR S/S OF SOB, DIFFICULTY BREATHING, FLUSHING, RASH/HIVES. WILL MONITOR CLOSELY.
--- NOTE | 2017-02-21 15:00 | NUR ---
AT BS WITH UPDATED INFORMATION, PREDNISONE ALLERGY IS "SEIZURE" STATES "WHEN HE WAS TAKING THE PREDNISONE, HE WAS HAVING SEIZURES." FAMILY EDUCATED IN REGARDS TO ALLERGIC REACTION PROTOCOL. PT STATES "I THINK YOU GUYS ARE EXPERIMENTING ON ME, GREGORIO BEEN HERE FOR A WEEK, AND IM NOT GETTING ANY BETTER." PT RE-EDUCATED OF DATE OF ADMISSION, AND THAT THE RATIONALE FOR CHANGINING ABX THERAPY WAS R/T THE RESULT OF THE SPUTUM CULTURE. PT INFORMED THAT GROWTH OF ANY CULTURES TAKES UP TO 48 HOURS, AND THAT HE WAS RECEIVING THE CORRECT ABX THERAPY. PT APPREHENSIVE, SPOUSE STATES UNDERSTANDING. CALL LIGHT WITHIN REACH, WILL CONTINUE TO MONITOR.
--- NOTE | 2017-02-21 17:00 | NUR ---
PT RESTING WITH EYES CLOSED, VSS. AT BS. SAFETY REVIEWED, WILL CONTINUE TO MONITOR.
--- NOTE | 2017-02-21 19:04 | NUR ---
REPORT FROM HUDSON MUSE. ASSUMED PT. CARE.
--- NOTE | 2017-02-21 20:05 | NUR ---
PT. REPOSITIONED FROM SUPINE TO RT. SIDE AT THIS TIME. PT. APPEARS TO BE LESS FATIGUED THIS EVENING THAN PRIOR NIGHTS. RESPS EVEN, SHALLOW AND UNLABORED. SKIN WARM AND DRY. AFEBRILE AT 97.0 IV FLUIDS INFUSING AT 125 CC/HR ORDERED. UPPER LUNGS CLEAR TO AUSCULTATION AND BILAT LOWER LUNG PATEL ARE DIMINISHED. DISTIL PULSES INTACT. PT. DENIES COMPLAINTS OF PAIN. VSS. PT. REMAINS SINUS RHYTHM IN THE 60-70'S. CALL LIGHT REMAINS WITHIN REACH. WILL CONTINUE TO ASSESS.
--- NOTE | 2017-02-21 21:45 | NUR ---
IV ANTIBIOTICS INFUSING AT THIS TIME. NO REACTIONS NOTED. FLUIDS CONTINUE TO INFUSE. PT. REMAINS SINUS WITH FREQUENT PAC'S/PVC'S. NO RESP DISTRESS NOTED.
--- NOTE | 2017-02-21 23:30 | NUR ---
PT. RESTING WITH EYES CLOSED. IV FLUIDS INFUSING AT 125/HR. RESPS EVEN AND UNLABORED. SKIN WARM AND DRY. REMAINS AFEBRILE. VSS.
[2017-02-22] VITALS (9 sets, daily range): BP systolic 122–159; BP diastolic 61–71
--- NOTE | 2017-02-22 03:10 | NUR ---
PT. RESTING WITH EYES CLOSED. VSS. NORMOTENSIVE. REMAINS SINUS WITH FREQUENT PAC'S. CALL LIGHT WITHIN REACH. MODERATE MOIST COUGH NOTED AT THIS TIME.
--- NOTE | 2017-02-22 04:05 | NUR ---
BLOOD SAMPLES OBTAINED FROM PICC LINE. REPOSITIONED FOR COMFORT. PT. UPDATED ON PLAN OF CARE. SKIN REMAINS WARM AND DRY. AFEBRILE. CONTINUES WITH MOIST COUGH AND SCANT SPUTUM PRODUCTION. CALL LIGHT REMAINS IN PLACE.
[2017-02-22 06:00] LABS: ANION GAP 11 (6-22 (CALC)); BUN 14 mg/dL (8-23); BUN/CREATININE RATIO 18 (12-20 (CALC)); CALCIUM 7.1 mg/dL (8.4-10.2); CARBON DIOXIDE 22 mmol/l (22-30); CHLORIDE 114 mmol/l (95-108); CREATININE 0.8 mg/dL (0.7-1.3); GFR > 60 ML/MIN (>=60 (CALC)); GFR FOR AFR.AMER. > 60 ML/MIN (>=60 (CALC)); GLUCOSE 78 mg/dL (82-115); POTASSIUM 3.8 mmol/l (3.5-5.1); SODIUM 143 mmol/l (137-146)
[2017-02-22 06:03] LABS: HEMATOCRIT 28.7 % (39.0-50.0); HEMOGLOBIN 8.8 g/dl (14.0-18.0); MEAN CELL VOLUME 102.1 fL CALC (80.0-100.0); MEAN CORPUSCULAR HGB 31.3 pG CALC (26.0-32.0); MEAN CORPUSCULAR HGB CONC 30.7 g/L CALC (32.0-36.0); PLATELET COUNT 114 thou/uL (130-400); RED BLOOD COUNT 2.81 mill/uL (4.70-6.10); RED CELL DISTRI WIDTH 21.5 % (11.5-15.5)
--- NOTE | 2017-02-22 06:30 | NUR ---
FULL BED BATH AND SACHIN CARE/CHRISTOPHER CARE PROVIDED. ALL LINENS CHANGED. NEW AQUACEL DRESSING APPLIED AND NEW PHOTO'S TAKEN. REPOSITIONED FOR COMFORT. PLACED TO LT. SIDE AT THIS TIME. CALL LIGHT WITHIN REACH.
[2017-02-22 06:43] LABS: BAND 4 % (0-8); IMMATURE GRANULOCYTES 22.2 % (0.0-1.0); MANUAL DIFFERENTIAL YES
--- NOTE | 2017-02-22 06:45 | NUR ---
REPORT RECEIVED FROM HUDSON PEOPLES. PT RESTING COMFORTABLY WITH EYES CLOSED. SAFETY REVIEWED, CALL LIGHT WITHIN REACH. WILL CONTINUE TO MONITOR.
--- NOTE | 2017-02-22 08:00 | NUR ---
PT HESISTANT ON PERFORMING ADL'S AND GETTING OOB. STATES :YOU PE0PLE JUST DONT UNDERSTAND THAT IM SICK. PT RE-EDUCATED ON THE BENEFITS TO INCREASING MOBILITY R/T INCREASED LUNG VOLUME EXPANSION, AND CLEARING SECRETIONS. PT CONTINUES TO STATE " WELL IT IS HARD, I HAVE A BAD LEG." PT RE-ASSURED THAT THEIR WOULD BE ADEQUATE ASSISTANCE FOR PERFORMING TRANSFERS AND WALKING. PT REFUSES TO AMBULATE AT THIS TIME. WILL NOTIFY .
--- NOTE | 2017-02-22 11:30 | NUR ---
PT HAS INCREASED APPETITE, ABLE/WILLING TO SET TRAY UP BY SELF. 75% OF MEAL FINISHED, TOLERATED ENSURE.
--- NOTE | 2017-02-22 13:09 | NUR ---
MED-SURG ROOM ASSIGNMENT ESTABLISHED, PT UPDATED TO ADJUSTMENTS OF PLAN OF CARE. STATES UNDERSTANDING. FAMILY AND FRIENDS VISITING AT BS.
--- NOTE | 2017-02-22 13:15 | NUR ---
Vancomycin single level analysis: Current dose being given: 1000 mg Current dosing interval: 24 hrs Current infusion time (hrs): 2 Single level Trough Data: Trough level obtained: 10 mcg/ml Timing of trough - Number of hours before next dose: 0.5 Hrs Desired peak: 30 mcg/ml Desired trough: 15 mcg/ml Recommendations: Give Vancomycin 1250 mg q 24 hrs. Infuse over 2 hrs NEXT TROUGH WILL BE 02/26/17 @ 1035
--- NOTE | 2017-02-22 13:58 | NUR ---
PT OOB AND TO THE BSC. REQUIRES TWO PERSON ASSISTANCE FOR TRANSFER. PT IS WEAK IN LOWER EXTREMITIES. SPO2 REMAINS > THAN 92% @ 4L NC. CALL LIGHT WITHIN REACH. INSTRUCTED PT TO CALL FOR ASSISTANCE. PT VERBALIZES UNDERSTANDING.
--- NOTE | 2017-02-22 15:14 | NUR ---
REPORT CALLED TO HUDSON SUE. PT HAS MERREM ABX INFUSING. WILL TRANSFER VIA WHEELCHAIR AND PORTABLE OXYGEN WHEN INFUSION COMPLETE.
--- NOTE | 2017-02-22 16:27 | NUR ---
REPORT RECEIVED FROM REDD IN ICU, PT ARRIVED ON UNIT VIA W/C ALERT AND ORIENTED X 2. O2 @ 4L VIA NC IN PLACE, COARSE HACKING WET COUGH OBSERVED, TELE MONITOR PLACED. CHRISTOPHER CATHETER IN PLACE WITH LIGHT RAZ URINE, DRESSING CDI TO COCCYX AREA, PURPLE/RED BRUISING TO UPPER EXT., PEDAL PULSES AUSCULTATED WITH DOPPLER, FEET COLD WITH SLUGGISH RETURN. ORIENTED TO ROOM AND CALL PARKS, SPOUSE AT BEDSIDE.
--- NOTE | 2017-02-22 19:00 | NUR ---
RECEIVED SHIFT REPORT FROM HUDSON SUE. PATIENT AWAKE AND LAYING IN BED. NO APPARENT ACUTE DISTRESS NOTED. NO VOICED COMPLAINTS AT THIS TIME.
--- NOTE | 2017-02-23 | NUR ---
PATIENT RESTING QUIETLY WITH EYES CLOSED AND APPEARS TO BE ASLEEP. RESPIRATION EVEN AND UNLABORED. NO APPARENT ACUTE DISTRESS NOTED.
--- NOTE | 2017-02-23 04:00 | NUR ---
NO ACUTE CHANGES NOTED IN PATIENT'S CONDITION.
[2017-02-23 05:12] VITALS: BP 144/64
--- NOTE | 2017-02-23 07:00 | NUR ---
SHIFT CHANGE REPORT, PT AWAKE AND ALERT, DENIES PAIN, O2 2 4L VIA NC IN PLACE, CHRISTOPHER CATHETER IN PLACE WITH RAZ URINE, CALL PARKS IN REACH.
[2017-02-23 08:54] VITALS: BP 148/55
--- NOTE | 2017-02-23 10:00 | NUR ---
MD'S ORDER TO REMOVE CHRISTOPHER CATHETER, PT HAS OPEN ULCERS TO GLUTEUS/COCCYX AND IS INCONTINENT OF B&B, WILL DELAY REMOVAL OF CATHETER FOR NOW, AGRIC[employer]URE [employer]NSHIP INFORMED.
--- NOTE | 2017-02-23 12:57 | NUR ---
ORDER WAS REC'D FOR BOTH P.T. AND O.T. EVALUATIONS. SPOKE WITH ABDIAZIZ LAINEZ, TO INFORM THAT NO O.T. AVAILABLE FOR EVALUATION UNTIL THURSDAY. PRIMARY CONCERN IS MOBILITY AT THIS TIME. HE WILL NEED O.T. AT INPATIENT REHAB FACILITY FOLLOWING D/C. PRACTIONER IS IN AGREEMENT WITH SAME AND O.T. EVAL DEFERRED. P.T. EVALUATION COMPLETED.
[2017-02-23 15:40] VITALS: BP 136/62
[2017-02-23 19:55] VITALS: BP 138/73
--- NOTE | 2017-02-23 21:00 | NUR ---
RESTING IN SEMIFOWLERS WATCHING TV, RESPIRATIONS EVEN AND UNLABORED, A/O X3. NS INFUSING TO TIARA PICC LINE AT 100CC/HR. DENIES PAIN OR DISCOMFORT. CHRISTOPHER CATHETER DRAINING CLEAR YELLOW URINE, REPOSITIONED TO RIGHT SIDE. DRESSING IN PLACE TO SACRUM CDI. PO FLUIDS IN REACH. WILL CONTINUE TO MONITOR.
--- NOTE | 2017-02-23 23:00 | NUR ---
REPOSITIONED TO RIGHT SIDE BY SOCORRO GARLAND.
[2017-02-23 23:30] VITALS: BP 140/61
[2017-02-24 04:10] VITALS: BP 154/73
--- NOTE | 2017-02-24 04:10 | NUR ---
COMPLETE BED BATH PROVIDED, PT ABLE TO ASSIST WITH TURNING FROM SIDE TO SIDE. OLD DRESSING TO SACRUM REMOVED, CLEANED WITH NS, CLEAN DRESSING AQUACEL FOAM APPLIED. POSITIONED TO LEFT SIDE.
[2017-02-24 06:10] LABS: HEMATOCRIT 30.2 % (39.0-50.0); HEMOGLOBIN 9.3 g/dl (14.0-18.0); MEAN CELL VOLUME 101.3 fL CALC (80.0-100.0); MEAN CORPUSCULAR HGB 31.2 pG CALC (26.0-32.0); MEAN CORPUSCULAR HGB CONC 30.8 g/L CALC (32.0-36.0); RED BLOOD COUNT 2.98 mill/uL (4.70-6.10); RED CELL DISTRI WIDTH 20.1 % (11.5-15.5)
[2017-02-24 06:26] LABS: ANION GAP 10 (6-22 (CALC)); BUN 12 mg/dL (8-23); BUN/CREATININE RATIO 18 (12-20 (CALC)); CALCIUM 7.2 mg/dL (8.4-10.2); CARBON DIOXIDE 27 mmol/l (22-30); CHLORIDE 109 mmol/l (95-108); CREATININE 0.6 mg/dL (0.7-1.3); GFR > 60 ML/MIN (>=60 (CALC)); GFR FOR AFR.AMER. > 60 ML/MIN (>=60 (CALC)); GLUCOSE 97 mg/dL (82-115); MAGNESIUM 1.4 mg/dL (1.6-2.3); SODIUM 143 mmol/l (137-146)
[2017-02-24 06:44] LABS: IMMATURE GRANULOCYTES 26.3 % (0.0-1.0)
[2017-02-24 06:54] LABS: MANUAL DIFFERENTIAL YES; PLATELET COUNT 116 thou/uL (130-400)
[2017-02-24 06:55] LABS: BAND 2 % (0-8)
[2017-02-24 06:56] LABS: ACANTHOCYTES FEW; ANISOCYTOSIS MODERATE; HYPOCHROMIA FEW; STOMATOCYTE MODERATE
[2017-02-24 06:57] LABS: OVALOCYTES FEW
[2017-02-24 07:50] VITALS: BP 161/68
--- NOTE | 2017-02-24 07:50 | NUR ---
ASSESSMENT IS COMPLETED;IV SITE IS FREE FROM REDNESS OR EDEMA. O2 @ 4LITERS WITH NC. CONTINUE TO OSBERVE AND MONITOR.
[2017-02-24 11:29] VITALS: BP 142/81
--- NOTE | 2017-02-24 12:35 | NUR ---
PT IS RELAXING IN BED FAMILY IN THE ROOM. NO DISTRESS NOTED. IV SITE IS FREE FROM REDNESS OR EDEMA. CONTINUE TO OBSERVE AND MONITOR.
--- NOTE | 2017-02-24 15:28 | NUR ---
Pt. seen this PM for functional activity of transfer training, bed mobility. Pt. found resting in bed and in agreement to participate in physical therapy, O2 sats at 94%. Supine to sit at edge of bed with verbal encouragement and tactile cues to use UE's to assist, however min. assist x1 for upper trunk support was still required. Sit to stand with min. assist x1 and bed elevated to assist. Pt. stood with RW x1 min. and performed marching in place with min. assist x1. Stand to sit with mod. assist x1, poor safety awareness. Sit to stand was performed a second time x1 min. with mod. assist x1 and then returned to sitting this time with improved safety awareness. Sit to supine with min. assist x1. Pt. able to reposition himself in bed with verbal and tactile cues for placement of feet. Pillows placed on left side of body to offload, pillows also placed under calfs to offload heels. Pt. left without complaints, call light and bedside table left within reach. O2 sats stayed above 90% during treatment and was 95% after treatment. Gait belt and non skid socks used during treatment.
[2017-02-24 15:57] VITALS: BP 132/60
--- NOTE | 2017-02-24 16:25 | NUR ---
PT IS RELAXING IN BED NO DISTRESS NOTE.D IV SITE IS FREE FROM REDNESS OR EDEMA.
[2017-02-24 19:15] VITALS: BP 143/79
--- NOTE | 2017-02-24 23:04 | NUR ---
BEDSIDE REPORT RECEIVED FROM NUHA AMEZCUA. PT RESTING ON SIDE IN BED. DENIES PAIN CURRENTLY. RESPIRATIONS EVEN AND UNLABORED ON 4L OF O2 VIA NC. PLAN OF CARE REVIEWED. PT ENCOURAGED TO VERBALIZE CONCERNS. STATES UNDERSTANDING. SAFETY MEASURES IN PLACE. CALL LIGHT WITHIN REACH.
[2017-02-24 23:20] VITALS: BP 147/65
--- NOTE | 2017-02-25 | NUR ---
PT ASLEEP AT THIS TIME. NO SIGNS OF DISTRESS NOTED. REPSIRATIONS SHALLOW WITH OXYGEN IN PLACE. IV FLUIDS INFUSING WITHOUT DIFFICULTY. IV SITE APPEARS HEALHTY. SAFETY MEASURES REMAIN IN PLACE. CALL LIGHT WITHIN REACH.
[2017-02-25 03:22] VITALS: BP 161/87
--- NOTE | 2017-02-25 04:12 | NUR ---
PT ALSEEP AT THIS TIME. NO SIGNS OF DISTRESS NOTED. RESPIRATIONS EVEN AND UNLABORED. NO CHANGES IN ASSESSMENT NOTED. SAFETY MEASURES IN PLACE. CALL LIGHT WITHIN REACH.
--- NOTE | 2017-02-25 09:00 | NUR ---
PT ALERT AND ORIENTED X 3, STATES THAT HE IS BREATHING BETTER. CHRISTOPHER CATHETER CHANGED OUT FOR LARGER BORE PER LEAKING AROUND THE TUBE. PICC TO RUE. IVF DISCONTINUED PER ORDER.
[2017-02-25 11:15] VITALS: BP 131/57
--- NOTE | 2017-02-25 13:00 | NUR ---
PT HAS HAD UNEVENTFUL MORNING, RESTS IN THE BED WITH AT BEDSIDE.
[2017-02-25] MEDS ORDERED: MEROPENEM1 GM IV (13:45)
[2017-02-25] MEDS ORDERED: CORDARONE/200 MG/TAB PO (13:47)
--- NOTE | 2017-02-25 15:00 | NUR ---
Pt. seen this PM for functional activity of transfer training, gait belt and non skid socks on prior to treatment. Pt. in agreement to participate in physical therapy. Supine to sit with SBA, pt. uses UE's to assist. Good static sitting balance noted. Reviewed sit to stand transfers using UE's for push off from bed. Sit to stand with min. assist x1. Pt. stood with hand held assist x2, 1 therapist to each hand. Pt. then took 2 steps to recliner and immediately reached for armrests and lowered himself onto recliner, CGA x2 provided. Sit to stand was attempted a second time, however pt. was too tired. Pt. was left sitting comfortably in recliner with call light and bedside table within reach. Pt. without complaints.
--- NOTE | 2017-02-25 15:20 | NUR ---
PT UP TO CHAIR FOR SOME TIME TODAY, THEN ASSISTED BACK INTO BED PER REQUEST. Bhavna HAS WORKED WITH PT IN ROOM.
[2017-02-25 15:37] VITALS: BP 121/57
--- NOTE | 2017-02-25 19:00 | NUR ---
RECEIVED SHIFT REPORT FRON HUDSON MCKOY. PATIENT RESTING IN BED AND APPEARS NOT TO BE IN ANY APPARENT ACUTE DISTRESS. WILL CONTINUE TO MONITOR.
[2017-02-25 19:50] VITALS: BP 163/68
[2017-02-25 23:25] VITALS: BP 160/71
--- NOTE | 2017-02-26 | NUR ---
PATIENT RESTING WITH EYES CLOSED AND APPEARS TO BE ASLEEP. RESPIRATION EVEN AND UNLABORED. NO APPARENT ACUTE CHANGES NOTED IN PATIENT'S CONDITION.
--- NOTE | 2017-02-26 04:00 | NUR ---
NO APPARENT ACUTE CHANGES NOTED IN PATIENT'S CONDITION.
[2017-02-26 04:09] VITALS: BP 151/70
[2017-02-26 07:27] VITALS: BP 139/87
--- NOTE | 2017-02-26 07:30 | NUR ---
PT POSITIONED TO LEFT SIDE, A/O X3, RESPIRATIONS EVEN AND UNLABORED, TEACHING DONE WITH PT REGARDING THE IMPORTANCE OF REPOSITIONING [id number], VOICES UNDERSTANDING, BREAKFAST PROVIDED AND FEEDING SELF. DENIES PAIN OR DISCOMFORT. CALL LIGHT IN REACH, WILL CONTINUE TO MONITOR.
--- NOTE | 2017-02-26 09:00 | NUR ---
DR. MORRISSEY AND ABDIAZIZ ONTIVEROS IT HELP DESK ANALYST IN TO SEE PT.
[2017-02-26 11:07] VITALS: BP 147/58
--- NOTE | 2017-02-26 12:34 | NUR ---
MAGNESIUM INFUSING TO TIARA PICC LINE WITH NO COMPLICATIONS.
--- NOTE | 2017-02-26 12:57 | NUR ---
Pt. seen this AM prior to lunch for functional activity of transfer training. Supine to side ly to sit with verbal cues and min. assist x1. Sitting at edge of bed pt. supports himself using both UE's. Sit to stand to walker with min. assist x1 and v.c.'s for UE push off from bed. Pt. stood x45 seconds with CGA x1 and walker. Stand to sit with mod. assist x1 for graded control. Attempted to stand a second time, however pt. requested to get back in bed. Pt. stood and side stepped with mod. assist x1 along edge of bed and then needed mod. assist x1 for bringing LE's up onto bed. AROM of LE's completed in bed with HOB elevated. Pt. left resting comfortably with call light and bedside table within reach, pt. left without complaints and eating lunch. O2 sats maintained above 90% during treatment with O2 via NC. Gait belt and non skid socks applied prior to treatment.
[2017-02-26 15:20] VITALS: BP 153/59
[2017-02-26 18:34] VITALS: BP 154/77
--- NOTE | 2017-02-26 19:00 | NUR ---
RECEIVED CHANGE OF SHIFT REPORT FROM HUDSON DOWELL. PATIENT RESTING QUIETLY IN BED. NO APPARENT ACUTE DISTRESS NOTED.
[2017-02-26 23:42] VITALS: BP 156/77
--- NOTE | 2017-02-27 | NUR ---
NO ACUTE CHANGES NOTED IN PT'S CONDITION.
--- NOTE | 2017-02-27 04:00 | NUR ---
NO APPARENT ACUTE CHANGES NOTED IN PATIENT'S CONDITION.
[2017-02-27 04:20] VITALS: BP 150/68
[2017-02-27 06:27] LABS: HEMATOCRIT 27.9 % (39.0-50.0); HEMOGLOBIN 8.9 g/dl (14.0-18.0); MEAN CELL VOLUME 101.8 fL CALC (80.0-100.0); MEAN CORPUSCULAR HGB 32.5 pG CALC (26.0-32.0); MEAN CORPUSCULAR HGB CONC 31.9 g/L CALC (32.0-36.0); RED BLOOD COUNT 2.74 mill/uL (4.70-6.10); RED CELL DISTRI WIDTH 20.1 % (11.5-15.5)
[2017-02-27 06:53] LABS: ANION GAP 9 (6-22 (CALC)); BUN 14 mg/dL (8-23); BUN/CREATININE RATIO 22 (12-20 (CALC)); CALCIUM 7.6 mg/dL (8.4-10.2); CARBON DIOXIDE 34 mmol/l (22-30); CHLORIDE 100 mmol/l (95-108); CREATININE 0.6 mg/dL (0.7-1.3); GFR > 60 ML/MIN (>=60 (CALC)); GFR FOR AFR.AMER. > 60 ML/MIN (>=60 (CALC)); GLUCOSE 86 mg/dL (82-115); POTASSIUM 4.1 mmol/l (3.5-5.1); SODIUM 139 mmol/l (137-146)
[2017-02-27 07:52] VITALS: BP 152/75
--- NOTE | 2017-02-27 07:52 | NUR ---
ASSESSMENT IS COMPLETED:IV SITE IS FREE FROM REDNESS OR EDEMA. DRESSING ON BUTTOCK IS CDI. CONTINUE TO OSBERVE AND MONITOR.
[2017-02-27 11:00] VITALS: BP 158/68
--- NOTE | 2017-02-27 11:40 | NUR ---
CHANGED DRESSING ON BUTTOCK TO VERSIVA XC. COVERED ALL AREAS. IV SITE REMAINS FREE FROM REDNESS OR EDEMA.
--- NOTE | 2017-02-27 12:03 | NUR ---
Pt. in agreement to participate in functional actvities of transfer training this morning, gait belt and non skid socks applied prior to doing so. Resting O2 sats at 93%. Prior to getting OOB P/AAROM of LE's was performed for warm up. Today pt. transfered supine to sit to the L side of the bed with mod. assist x1. Pt. reported getting up to the L side of bed is more difficult. Pt. sat at edge of bed x5 minutes using UE's to support himself, SBS x1. Sit to stand was performed for less than 10 seconds with RW and min. assist x1. Pt. refused to walk today, however agreed to stand and side step with mod. assist x1 towards HOB. Sit to supine with assistance x1 for bringing LE's up on bed. HOB was elevated, O2 sats taken again and were at 97%. Call light reviewed and left within reach. Pt. without complaints.
--- NOTE | 2017-02-27 12:18 | NUR ---
PICTURES OBTAINED ON BUTTOCKS FOR THE CHART FAMILY AWARE OF TRANSPORT TO REHAB
--- NOTE | 2017-02-27 12:52 | NUR ---
SPOKE WITH HELDER TREVIÑO AT [facility] AND GAVE REPORT WAITING FOR TRANSPORT TO PROCESS HELPER PT.
--- NOTE | 2017-02-27 13:27 | NUR ---
PT BEING TRANSPORTED TO [facility]IA [facility]/ IV SITE REMAINS INTACT. O2 @ 2 LITERS WITH NC. PT ABLE TO TRANSPORT IN A WC. REPORT GIVEN FAMILY IN THE ROOM, AND ALL BELONGINGS GIVEN TO PT. CONTINUE TO OSBERVE AND MONITOR.
== END 2017-02-27 13:25 | DRG 871 ==
LOC: ED 20:42 → ED-I 22:40 → ED 22:56 → MS2 22:57 → ICU 22:57 → MS2 02-22 15:21
PROVIDERS: Emergency Medicine; Internal Medicine; Nurse Practitioner Family; ADMIT Internal Medicine; ATTEND Internal Medicine
PROC: 5A09357 Assistance with Respiratory Ventilation, Less than 24 Consecutive Hours, Continuous Positive Airway Pressure (ICD-10-PCS; 2017-02-18)
PROC: 30233N1 Transfusion of Nonautologous Red Blood Cells into Peripheral Vein, Percutaneous Approach (ICD-10-PCS; principal; 2017-02-19)
PROC: 30233N1 Transfusion of Nonautologous Red Blood Cells into Peripheral Vein, Percutaneous Approach (ICD-10-PCS; 2017-02-19)
PROC: 02HV33Z Insertion of Infusion Device into Superior Vena Cava, Percutaneous Approach (ICD-10-PCS; 2017-02-19)
PROC: B518ZZA Fluoroscopy of Superior Vena Cava, Guidance (ICD-10-PCS; 2017-02-19)
PROC: 0T9B70Z Drainage of Bladder with Drainage Device, Via Natural or Artificial Opening (ICD-10-PCS; 2017-02-19)
DX: A41.9 Sepsis, unspecified organism (principal); J15.6 Pneumonia due to other Gram-negative bacteria; N17.9 Acute kidney failure, unspecified; J96.10 Chronic respiratory failure, unspecified whether with hypoxia or hypercapnia; J44.0 Chronic obstructive pulmonary disease with (acute) lower respiratory infection; D68.61 Antiphospholipid syndrome; L89.152 Pressure ulcer of sacral region, stage 2; D46.9 Myelodysplastic syndrome, unspecified; I48.92 Unspecified atrial flutter; R65.20 Severe sepsis without septic shock; I12.9 Hypertensive chronic kidney disease with stage 1 through stage 4 chronic kidney disease, or unspecified chronic kidney disease; N18.3 Chronic kidney disease, stage 3 (moderate); I48.91 Unspecified atrial fibrillation; I45.10 Unspecified right bundle-branch block; I73.9 Peripheral vascular disease, unspecified; I71.4 Abdominal aortic aneurysm, without rupture; E78.5 Hyperlipidemia, unspecified; M35.3 Polymyalgia rheumatica; E86.0 Dehydration; E86.1 Hypovolemia; F41.9 Anxiety disorder, unspecified; E87.6 Hypokalemia; E83.42 Hypomagnesemia; R41.0 Disorientation, unspecified; Z99.81 Dependence on supplemental oxygen; Z88.8 Allergy status to other drugs, medicaments and biological substances; Z88.0 Allergy status to penicillin; Z85.46 Personal history of malignant neoplasm of prostate; Z87.891 Personal history of nicotine dependence; Z16.24 Resistance to multiple antibiotics
CPT/HCPCS: J0282; J0885; J1160; J3370; P9016